=== PATIENT | female | born 1965 | race Caucasian/White ===

== ENCOUNTER 2025-02-23 11:46 | Emergency (ER) | payer OTHER, SELFPAY ==
--- NOTE | ~2025-02-23 | XR_ITS ---
EXAMINATION: XR knee RT min 4V, 02/23/2025 14:40 APPLICATION DESIGN ENGINEER HISTORY: pain, fall 2 weeks ago COMPARISON: No comparisons available. Findings: No acute fracture or malalignment. Moderate to severe tricompartmental degenerative changes with small effusion Soft tissues unremarkable. Impression: No acute fracture or malalignment. Reviewed, dictated and finalized at location P. ICATION DESIGN ENGINEER Impression: No acute fracture or malalignment.
--- NOTE | ~2025-02-23 | US_ITS ---
EXAMINATION: US venous doppler LE DATE: 02/23/2025 14:25 INDICATION: Right lower extremity pain and swelling. TECHNIQUE: Grayscale ultrasound images without and with compression and Doppler ultrasound images of the right lower extremity veins were obtained. COMPARISON: None available FINDINGS: The visualized portions of right common femoral vein, profunda (deep) femoral vein, femoral vein, popliteal vein, peroneal veins, posterior tibial veins, and greater saphenous vein outflow are patent. IMPRESSION: 1. No evidence of deep venous thrombosis of right lower extremity veins. Reviewed, dictated and finalized at location T. MARKETING INTERN
[2025-02-23 11:51] VITALS: BP 150/99; PULSE 92; RESP 18; TEMP 36.8; O2SAT 99
[2025-02-23 12:33] VITALS: BP 152/92; PULSE 81; RESP 17; O2SAT 99
[2025-02-23 12:41] VITALS: BP 152/92; PULSE 88; RESP 14; O2SAT 99
--- NOTE | 2025-02-23 13:54 | ED_ITS ---
HPI - Extremity Injury (Lower) General Chief Complaint: Extremity Injury, Lower Stated Complaint: right leg pain with swelling x weeks Time Seen by Provider: 02/23/25 13:10 Source: patient Mode of arrival: EMS Limitations: no limitations History of Present Illness HPI Narrative: Patient is a 59-year-old female, with PMH of bipolar disorder, schizophrenia, depression, who presents the ED via EMS with report of right lower extremity pain and suicidal ideation. Patient reports she tripped and fell in the parking lot at her snf facility 2 weeks ago and landed on her right knee. She complains of pain to her right knee and swelling diffusely throughout her right lower extremity since then. States she is concerned she has a blood clot. Denies previous history of blood clots. She is also reporting concern over bilateral bunions. She has not been evaluated for this in the past. She also endorses depression and suicidal ideation. States she does not want to live if she has to live at the snf facility. She denies any current plan for suicide. Denies homicidal ideation. Related Data Home Medications ?Medication ?Instructions ?Recorded ?Confirmed ?Last Taken ?Type alprazolam 0.5 mg tablet 0.5 mg PO TID 01/14/23 Unkn own History bisacodyl 10 mg rectal suppository 10 mg RECTAL DAILY PRN 01/14/23 Unknown History bupropion HCl 150 mg 24 hr tablet, 150 mg PO QAM 01/14 Unknown History extended release fluoxetine 40 mg capsule 40 mg PO DAILY 01/14/23 Unk nown History mirtazapine 15 mg tablet 15 mg PO DAILY 01/14/23 Unk nown History mirtazapine 7.5 mg tablet 7.5 mg PO DAILY 01/14/23 Un known History paliperidone palmitate 234 mg/1.5 234 mg IM MONTHLY Unknown History mL intramuscular syringe (Invega Sustenna) tramadol 50 mg tablet 50 mg PO Q6H PRN 01/14/23 U nknown History trazodone 100 mg tablet 100 mg PO QHS PRN 01/14/23 Unknown History Allergies Allergy/AdvReac Type Severity Reaction Status Date / Time carbamazepine (From Tegretol) Allergy Mild Hives Verified 02/23/25 12:42 lithium Allergy Mild Diarrhea Verified 02/23/25 12:42 Review of Systems 2 Review of Systems: All systems reviewed & are unremarkable except as noted in HPI. All systems reviewed & are unremarkable except as noted in HPI and below PMFSH Past Medical History Medical History Herpesvirus 2 COPD (chronic obstructive pulmonary disease) Schizophrenia Bipolar 1 disorder Social History Social History Smoking status: Never smoker Alcohol intake: former Substance use: never Living arrangements: assisted living Occupation/Education: unemployed Gender identity (if verbalized by the patient): Female Sexual Orientation (if Verbalized by the Patient): Straight or Heterosexual Exam 2 Narrative: GENERAL: Well appearing, obese with BMI of 38.9, non-toxic, in no acute distress. HEAD: Normocephalic, atraumatic. RESPIRATORY: Airway patent, respirations nonlabored. Clear to auscultation bilaterally, no rales, rhonchi, wheezing. CARDIOVASCULAR: Regular rate and rhythm. Pedal pulses intact and easily palpable. MUSCULOSKELETAL: Moves all extremities. No gross deformities. Mild swelling throughout right anterior knee. Mild diffuse tenderness throughout right anterior knee. No significant swelling throughout remainder of right lower extremity. Sensation intact. SKIN: Warm, dry, normal color. NEURO: A&O X3. Speech clear. Cranial nerves II-XII grossly intact. Steady gait. No ataxic movements. PSYCHIATRIC: Hyper-fixated on certain features, wide eyes, somewhat flat affect. Normal interaction. Course Vital Signs Vital signs: Vital Signs Temperature 98.2 F 02/23/25 11:51 Pulse Rate 92 02/23/25 11:51 Respiratory Rate 18 02/23/25 11:51 Blood Pressure 150/99 H 02/23/25 11:51 Pulse Oximetry 99 02/23/25 11:51 Oxygen Delivery Room Air 02/23/25 11:51 Temperature 98.2 F 02/23/25 11:51 Pulse Rate 87 02/23/25 18:18 Respiratory Rate 17 02/23/25 18:18 Blood Pressure 154/87 H 02/23/25 18:18 Pulse Oximetry 99 02/23/25 18:18 Oxygen Delivery Room Air 02/23/25 12:33 MDM - Extremity Injury (Lower) MDM Narrative Medical decision making narrative: Patient presented to ED with right knee pain status post fall 2 weeks ago. X- ray negative, does show osteoarthritis and small joint effusion. Venous Doppler ultrasound negative for DVT. Discussed likelihood of musculoskeletal strain, management of such. Patient placed in Cameron bandage. Discussed rice therapy. Will be referred to orthopedics for further eval as needed. Patient also reported at depression with suicidal ideation. ED psych workup was initiated. Laboratory studies are grossly unremarkable. Urinalysis with 11-20 WBC. No urine bacteria seen. Sent for culture. Patient is not having any urinary complaints at this time. Low suspicion for acute UTI. Will defer treatment to culture results. Patient medically cleared to undergo psychiatric evaluation by crisis. Crisis team evaluated patient and determined her to meet criteria for safety planning and discharge home. Patient is in agreement this plan. Advised to follow safety plan and utilize resources given to her by crisis team. Discussed strict return precautions. Patient voiced understanding. Discharged in stable condition. Medical Records Attestation: I reviewed the patient's medical records. Lab Data Attestation: I reviewed the patient's lab results. 02/23/25 14:48 02/23/25 14:48 Labs: Lab Results 02/23/25 Range/Units 14:48 WBC 7.9 (4.5-10.0) K/mm3 RBC 3.92 L (4.2-5.4) M/mm3 Hgb 12.4 (12.0-15.0) g/dL Hct 37.0 (37.0-47.0) % MCV 94.4 (80-100) fl MCH 31.6 (26-34) pg MCHC 33.5 (32-36) g/dl RDW 12.2 (11.5-14.5) % Plt Count 256 (150-375) k/mm3 MPV 9.2 (7.4-10.4) fl Immature Gran % (Auto) 0.3 (0-0.5) % Neut % (Auto) 66.2 (45.5-73.1) % Lymph % (Auto) 22.5 (18.3-44.2) % [place] % (Auto) 9.5 H (2.6-8.5) % Eos % (Auto) 1.0 (0-4.4) % Baso % (Auto) 0.5 (0.2-1.2) % Lymph # (Auto) 1.78 (0.9-3.2) K/mm3 [place] # (Auto) 0.8 H (0.1-0.6) K/mm3 Eos # (Auto) 0.1 (0-0.3) K/mm3 Baso # (Auto) 0.0 (0.0-0.1) K/mm3 Abs Immat Gran (auto) 0.02 (0.00-0.031) K/mm3 Absolute Neuts (auto) 5.3 (1.3-6.7) K/mm3 Absolute Nucleated RBC 0.000 (0.0-0.012) K/mm3 Nucleated RBC % 0.0 (0.0-0.2) % Sodium 137 (137-145) mmol/L Potassium 4.0 (3.4-5.0) mmol/L Chloride 102 (98-107) mmol/L Carbon Dioxide 28 (22-30) mmol/L Anion Gap 7 (4-12) mmol/L BUN 12 (7-17) mg/dL Creatinine 0.86 (0.7-1.0) mg/dL Estim Creat Clear Calc 71 ml/min Estimated GFR > 60 (59 - ) Glucose 106 (65-110) mg/dL Calcium 9.0 (8.4-10.2) mg/dL Total Bilirubin 0.5 (0.2-1.3) mg/dL AST 29 (14-36) U/L ALT 19 (6-35) U/L Alkaline Phosphatase 96 (38-126) U/L Total Protein 7.4 (6.3-8.2) g/dL Albumin 4.3 (3.5-5.1) g/dL TSH 3.670 (0.465-4.680) uIU/mL Urine Color Yellow (Yellow) Urine Appearance Clear (Clear) Urine pH 5.5 (5.0-9.0) Ur Specific [place] 1.008 (1.001-1.035) Urine Protein Negative (Negative) mg/dL Urine Glucose (UA) Negative (Negative) mg/dL Urine Ketones Negative (Negative) mg/dL Ur Blood (Man) Negative (Negative) Urine Nitrate Negative (Negative) Urine Bilirubin Negative (Negative) Urine Urobilinogen 0.2 (<2.0) mg/dL Leukocyte Esterase Rfl 2+ H (Negative) LAXMI/UL Urine RBC 0-2 (0-2) /hpf Urine WBC 11-20 H (0-3) /hpf Ur Squamous Epith Cells None seen (Few) /hpf Urine Bacteria None seen /hpf Urine Casts 0-2 Salicylates < 1.0 L (2-20) mg/dL Urine Opiates Screen Negative (Negative) Urine Methadone Screen Negative (Negative) Acetaminophen < 10 L (10-30) ug/mL Ur Barbiturates Screen Negative (Negative) Ur Phencyclidine Scrn Negative (Negative) Ur Amphetamine Screen Negative (Negative) U Benzodiazepines Scrn Negative (Negative) Urine Cocaine Screen Negative (Negative) U Cannabinoids Screen Negative (Negative) Ethyl Alcohol < 10 (<10) mg/dL Influenza A (RT-PCR) Negative (Negative) Influenza B (RT-PCR) Negative (Negative) RSV (RT-PCR) Negative (Negative) SARS-CoV-2 RNA (RT-PCR) Negative (Negative) Imaging Data Attestation: I personally reviewed and interpreted this imaging study as follows: Radiologist's impression: ITS Impressions Venous Doppler Study 02/23/25 14:27 IMPRESSION: 1. No evidence of deep venous thrombosis of right lower extremity veins. Knee X-Ray 02/23/25 14:47 Impression: No acute fracture or malalignment. Discharge Plan Discharge Clinical Impression: Strain of right knee, Depression Patient Disposition: NH Detention/Asst Living Condition: Stable Instructions: Antibiotic Form, Knee Sprain (ED), P.R.I.C.E. Treatment (ED) Additional Instructions: You likely sprained your knee. Utilize Cameron bandage for compression and support. Recommend Tylenol and ibuprofen as needed for pain, frequent icing to knee. Follow-up with orthopedics for further evaluation if needed. Call office to make appointment as needed. Follow safety plan and utilize resources given to you by crisis/mental health team. Return to the ED if you experience worsening or severe pain, recurrent fall or injury, numbness, worsening or severe depression, thoughts of wanting to harm herself or anyone else, or any other symptoms of concern. Patient Language: Bengali Prescriptions: No Action alprazolam 0.5 mg tablet 0.5 mg PO TID bisacodyl 10 mg suppository 10 mg RECTAL DAILY PRN bupropion HCl 150 mg tablet extended release 24 hr 150 mg PO QAM fluoxetine 40 mg capsule 40 mg PO DAILY Invega Sustenna 234 mg/1.5 mL syringe 234 mg IM MONTHLY mirtazapine 15 mg tablet 15 mg PO DAILY mirtazapine 7.5 mg tablet 7.5 mg PO DAILY tramadol 50 mg tablet 50 mg PO Q6H PRN trazodone 100 mg tablet 100 mg PO QHS PRN Follow-up/Referrals: PHYSICIAN NOT ON STAFF,NONSTAFF [Primary Care Provider] Nikolai Buckner MD [Physician, Orthopedics] Referral Note: ORTHOPEDICS Time of Disposition: 19:18
--- NOTE | 2025-02-23 14:33 | PC.NURSE ---
cords and oxygen tank taken out of room.
[2025-02-23 14:58] LABS: Hematocrit 37.0 % (37.0-47.0); Hemoglobin 12.4 g/dL (12.0-15.0); Immature Granulocyte Percent A 0.3 % (0-0.5); Lymphocytes Absolute Auto 1.78 K/mm3 (0.9-3.2); Mean Corpuscular HGB Conc 33.5 g/dl (32-36); Mean Corpuscular Hemoglobin 31.6 pg (26-34); Mean Corpuscular Volume 94.4 fl (80-100); Nucleated Red Blood Cells Absolute Auto 0.000 K/mm3 (0.0-0.012); Nucleated Red Blood Cells Perc 0.0 % (0.0-0.2); Platelet Count Result 256 k/mm3 (150-375); Red Blood Count 3.92 M/mm3 (4.2-5.4); White Blood Count 7.9 K/mm3 (4.5-10.0)
[2025-02-23 15:06] LABS: Add Urine Microscopic? YES; Appearance Urine Clear (Clear); Glucose Urine UA Negative (Negative); Leukocyte Esterase Ur 2+ LEU/UL (Negative); Nitrate Urine Negative (Negative); Non Pathogenic Casts 0-2; Specific Grav Ur 1.008 (1.001-1.035)
[2025-02-23 15:09] LABS: Alanine Aminotransferase 19 U/L (6-35); Albumin Level 4.3 g/dL (3.5-5.1); Alkaline Phosphatase 96 U/L (38-126); Anion Gap 7 mmol/L (4-12); Aspartate Amino Transferase 29 U/L (14-36); Bilirubin,Total 0.5 mg/dL (0.2-1.3); Blood Urea Nitrogen 12 mg/dL (7-17); Calcium 9.0 mg/dL (8.4-10.2); Carbon Dioxide 28 mmol/L (22-30); Chloride 102 mmol/L (98-107); Estimated CRCL calculation 71 ml/min; Estimated Glomerular Filt Rate > 60; Glucose 106 mg/dL (65-110); Potassium 4.0 mmol/L (3.4-5.0); Sodium 137 mmol/L (137-145); Total Protein 7.4 g/dL (6.3-8.2)
[2025-02-23 15:15] LABS: Acetaminophen < 10 ug/mL (10-30); Salicylate < 1.0 mg/dL (2-20)
[2025-02-23 15:19] LABS: Cannabinoid Screen Urine Negative (Negative)
[2025-02-23 15:38] LABS: Influenza A QL RT-PCR Negative (Negative); Influenza B QL RT-PCR Negative (Negative); RSV RNA, RT-PCR Negative (Negative); SARS-CoV-2 RNA PCR Negative (Negative)
[2025-02-23 15:40] LABS: Thyroid Stimulating Hormone 3.670 uIU/mL (0.465-4.680)
[2025-02-23] MEDS: ACETAMINOPHEN 500 MG TABLET 1000 MG PO (16:38)
[2025-02-23] MEDS: LORazepam (*CRX) 0.5 MG TABLET PO (18:04)
[2025-02-23 18:18] VITALS: BP 154/87; PULSE 87; RESP 17; O2SAT 99
[2025-02-23 20:03] VITALS: BP 152/91; PULSE 74; RESP 14; O2SAT 99
[2025-02-23 21:43] VITALS: BP 146/90; PULSE 74; RESP 17; O2SAT 100
== END 2025-02-23 21:46 ==
PROVIDERS: Emergency Provider Physician Assistant
DX: S86.911A Strain of unspecified muscle(s) and tendon(s) at lower leg level, right leg, initial encounter (principal); F32.A Depression, unspecified; Z20.822 Contact with and (suspected) exposure to COVID-19; J44.9 Chronic obstructive pulmonary disease, unspecified; W01.0XXA Fall on same level from slipping, tripping and stumbling without subsequent striking against object, initial encounter
CPT/HCPCS: 36415; 73564; 80053; 80143; 80179; 80307; 81001; 82077; 84443; 85025; 87086; 87637; 93971; 99284; A9270